=== PATIENT | female | born 1995 | race Two or more races ===

== ENCOUNTER 2019-07-28 08:46 | Emergency (ER) | payer MEDICAID ==
[~2019-07-28] VITALS: Ht 167.6 cm; Wt 72.6 kg
[~2019-07-28 08:46] MED LIST: ASPITAB34
[2019-07-28 09:21] VITALS: BP 120/73
[2019-07-28] MEDS ORDERED: LIDOCAINE 1% HCL (LOCAL ANESTH.) INJ 20ML MDV IJ ONE (09:45)
== END 2019-07-28 10:27 | disposition home or self-care (01) ==
LOC: ER 08:46
DX: S01.311A Laceration without foreign body of right ear, initial encounter (principal); S60.221A Contusion of right hand, initial encounter; W22.8XXA Striking against or struck by other objects, initial encounter; Y93.01 Activity, walking, marching and hiking; Y92.511 Restaurant or cafe as the place of occurrence of the external cause; Y99.8 Other external cause status
CPT/HCPCS: 12013; 73130; 99283; J2001

== ENCOUNTER 2019-08-09 15:12 | Emergency (ER) | payer MEDICAID ==
[~2019-08-09] VITALS: Ht 167.6 cm; Wt 72.6 kg
[2019-08-09 16:29] VITALS: BP 122/68
== END 2019-08-09 17:26 | disposition home or self-care (01) ==
LOC: ER 15:24
DX: S01.311D Laceration without foreign body of right ear, subsequent encounter (principal); X58.XXXD Exposure to other specified factors, subsequent encounter

== ENCOUNTER 2019-11-18 14:50 | Emergency (ER) | payer MEDICAID ==
[~2019-11-18] VITALS: Ht 165.1 cm; Wt 72.6 kg
[2019-11-18 14:58] VITALS: BP 105/64
[2019-11-18] MEDS ORDERED: PHENAZOPYRIDINE HCL 100 MG TAB PO ONE (15:15)
[2019-11-18 16:09] LABS: Urine Bacteria FEW /hpf (None Seen); Urine Blood 2+ /uL (Negative); Urine Mucus FEW (None Seen); Urine Specific Gravity 1.037 (1.001-1.035); Urine WBC 36 /hpf (0 - 5)
== END 2019-11-18 15:43 | disposition home or self-care (01) ==
LOC: ER 14:50
DX: N39.0 Urinary tract infection, site not specified (principal)
CPT/HCPCS: 81001

== ENCOUNTER → 2019-11-19 | Emergency (ER) | payer MEDICAID ==
[~2019-11-19] VITALS: Ht 165.1 cm; Wt 72.6 kg
[2019-11-19 10:49] VITALS: BP 115/64
== END | disposition home or self-care (01) ==
LOC: ER 10:35
DX: B00.9 Herpesviral infection, unspecified (principal)

== ENCOUNTER → 2019-11-19 | Emergency (ER) | payer MEDICAID ==
[~2019-11-19] VITALS: Ht 165.1 cm; Wt 72.6 kg
[2019-11-19 02:48] VITALS: BP 106/69
== END | disposition left against medical advice (07) ==
LOC: ER 02:17
DX: R10.2 Pelvic and perineal pain (principal); Z53.21 Procedure and treatment not carried out due to patient leaving prior to being seen by health care provider
CPT/HCPCS: 81025

== ENCOUNTER 2019-12-01 13:00 | Emergency (ER) | payer MEDICAID ==
[~2019-12-01] VITALS: Ht 165.1 cm; Wt 72.6 kg
[~2019-12-01 13:00] MED LIST changes: -AZITHROMYCIN 250 MG TAB PO ONE; -LIDOCAINE 1% HCL (LOCAL ANESTH.) INJ 20ML MDV ONE; -LIDOCAINE HCL 1 % PF INJ 2ML AMP IJ ONE; -cefTRIAXone SOD 1,000 MG VL IM ONE
[2019-12-01 14:08] VITALS: BP 127/57
== END 2019-12-01 15:08 | disposition left against medical advice (07) ==
LOC: ER 13:00
DX: N89.8 Other specified noninflammatory disorders of vagina (principal)

== ENCOUNTER → 2019-12-01 | Emergency (ER) | payer MEDICAID ==
[~2019-12-01] VITALS: Ht 165.1 cm; Wt 72.6 kg
[~2019-12-01] MED LIST changes: +AZITHROMYCIN 250 MG TAB PO ONE; +LIDOCAINE 1% HCL (LOCAL ANESTH.) INJ 20ML MDV ONE; +LIDOCAINE HCL 1 % PF INJ 2ML AMP IJ ONE; +cefTRIAXone SOD 1,000 MG VL IM ONE
[2019-12-01 18:09] VITALS: BP 118/78
== END | disposition home or self-care (01) ==
LOC: ER 17:55
DX: N39.0 Urinary tract infection, site not specified (principal); B37.9 Candidiasis, unspecified; Z79.82 Long term (current) use of aspirin
CPT/HCPCS: 96372; 99283; J0696; J2001

== ENCOUNTER 2019-12-04 06:01 | Emergency (ER) | payer MEDICAID ==
[~2019-12-04] VITALS: Ht 165.1 cm; Wt 72.6 kg
[2019-12-04 06:58] VITALS: BP 117/75
== END 2019-12-04 07:29 | disposition home or self-care (01) ==
LOC: ER 06:01
DX: B80 Enterobiasis (principal); L24.9 Irritant contact dermatitis, unspecified cause

== ENCOUNTER 2019-12-07 09:42 | Emergency (ER) | payer MEDICAID ==
[~2019-12-07] VITALS: Ht 165.1 cm; Wt 72.6 kg
[2019-12-07 10:06] VITALS: BP 106/67
== END 2019-12-07 11:36 | disposition home or self-care (01) ==
LOC: ER 09:42
DX: N76.0 Acute vaginitis (principal); Z79.82 Long term (current) use of aspirin

== ENCOUNTER 2019-12-14 01:23 | Emergency (ER) | payer MEDICAID ==
[~2019-12-14] VITALS: Ht 165.1 cm; Wt 72.6 kg
[2019-12-14 02:52] VITALS: BP 114/84
[2019-12-14 03:35] LABS: Urine Amorphous Crystal FEW /hpf (None Seen); Urine Bacteria FEW /hpf (None Seen); Urine Blood Negative /uL (Negative); Urine Mucus FEW (None Seen); Urine Specific Gravity 1.026 (1.001-1.035); Urine WBC 1 /hpf (0 - 5)
== END 2019-12-14 03:18 | disposition home or self-care (01) ==
LOC: ER 01:23
DX: L29.0 Pruritus ani (principal); B07.8 Other viral warts
CPT/HCPCS: 81001

== ENCOUNTER 2020-02-13 19:56 | Emergency (ER) | payer MEDICAID ==
[~2020-02-13] VITALS: Ht 167.6 cm; Wt 72.6 kg
[2020-02-13 22:38] VITALS: BP 99/63
== END 2020-02-13 22:33 | disposition home or self-care (01) ==
LOC: ER 20:00
DX: J02.9 Acute pharyngitis, unspecified (principal); R19.7 Diarrhea, unspecified; R51 Headache; F12.10 Cannabis abuse, uncomplicated; Z20.828 Contact with and (suspected) exposure to other viral communicable diseases
CPT/HCPCS: 87070; 87635; 87880